=== PATIENT | male | born 1950 | race Caucasian/White ===

== ENCOUNTER 2017-05-27 09:56 | Emergency (ER) | END 2017-05-27 18:27 | disposition home or self-care (01) ==

== ENCOUNTER 2018-08-27 12:29 | Inpatient (IN) | payer MEDICARE, OTHER ==
[~2018-08-27] VITALS: Ht 182.9 cm; Wt 77.0 kg
[~2018-08-27 12:29] MED LIST: HYDR-3980 PO; ONDA4TAB14 PO
[2018-08-27 12:35] VITALS: Ht 182.9 cm; Wt 77.0 kg
--- NOTE | 2018-08-27 14:37 | ERD ---
ER Documentation Chief Complaint Chief Complaint BILATERAL FLANK PAIN & AP WITH DYSURIA X 4 DAYS HPI This is a 68-year-old man with a history of nephrolithiasis status post surgical removal presenting with 3 days constant periumbilical pain and nausea. He denies flank pain or hematuria, no fevers or chills, no chest pain or shortness of breath. Patient has a long history of Crohn's disease and multiple laparotomies and right hemicolectomy. Patient denies blood per rectum or melena. ROS All systems reviewed and are negative except as per history of present illness. Medications Home Meds Reported Medications Cholecalciferol (Vitamin D3) 5,000 Unit Tablet, 5000 UNIT PO DAILY, TAB 08/27/18 Alprazolam* (Xanax*) 2 Mg Tablet, 2 MG PO Q12H PRN for ANXIETY, TAB 08/27/18 Donepezil* (Aricept*) 10 Mg Tablet, 10 MG PO DAILY, TAB 08/27/18 Discontinued Scripts Ondansetron (Ondansetron Odt) 4 Mg Tab.rapdis, 4 MG PO Q6H PRN for NAUSEA AND/OR VOMITING, #10 TAB Prov:HELENA MARQUEZ MD 05/27/17 Hydrocodone/Acetaminophen ([place] 10-325 Tablet) 1 Each Tablet, 1 TAB PO Q6H PRN for PAIN, #7 TAB Prov:HELENA MARQUEZ MD 05/27/17 Allergies Allergies: Coded Allergies: No Known Allergies (Verified Allergy, Mild, 08/27/18) PMhx/Soc chronic obstructive pulmonary disease, cholelithiasis, nephrolithiasis, depression, Crohn's disease, hepatitis, pleural effusion, history of mediastinal lymphadenopathy in the past. Status post hemicolectomy multiple laparotomies. Patient was admitted in 2016 with chest pain had a stress test done which did not show any significant reversible ischemia History of Surgery: Yes (intestinal x7, bilateral kidney stones ablation ) Anesthesia Reaction: No Hx Neurological Disorder: No Hx Respiratory Disorders: No Hx Cardiac Disorders: No Hx Psychiatric Problems: No Hx Miscellaneous Medical Probl: Yes (crohn's dx, kidney stones) Hx Alcohol Use: No Hx Substance Use: No Hx Tobacco Use: Yes FmHx Family History: No diabetes Physical Exam Vitals Vital Signs Date Temp Pulse Resp B/P (MAP) Pulse Ox O2 O2 Flow FiO2 Time Delivery Rate 08/27/18 98.0 59 18 131/62 96 Room Air 14:55 (85) 08/27/18 97.5 94 16 133/63 94 12:35 (86) Physical Exam GENERAL: Well-developed, well-nourished, well-hydrated, moderate discomfort, afebrile HEENT: Moist mucous membranes, pink conjunctiva, no cervical spine tenderness or step-off deformities, no goiter, no jaundice or icterus, extraocular movements intact without pain. No submandibular induration, and no pharyngeal erythema NEURO: Alert and oriented 3, cranial nerves II through XII intact bilaterally, pupils equal round reactive to light, no focal deficits or facial asymmetry, sensation intact distally Strength 5/5 in upper and lower extremities bilaterally CARDIAC: Regular rate and rhythm, no murmurs rubs or gallops LUNGS: Clear bilaterally no wheezing crackles or stridor ABDOMEN: Tenderness over the umbilicus, no rigidity or rebound SKIN: Warm and dry to touch, no abrasions, contusions, or hematomas, no lacerations, no ecchymosis, no target lesions, and without ulcers EXTREMITIES: No clubbing cyanosis or edema, calves are bilaterally symmetrical, no Homans sign, no popliteal cord sign. Distal pulses equal and bilateral PSYCH: Normal affect without agitation or irritability Result Diagram: 08/27/18 1456 08/27/18 1456 Results 24 hrs Laboratory Tests Test 08/27/18 14:56 White Blood Count 7.6 10^3/ul Red Blood Count 4.60 10^6/ul Hemoglobin 13.0 g/dl Hematocrit 42.2 % Mean Corpuscular Volume 91.7 fl Mean Corpuscular Hemoglobin 28.3 pg Mean Corpuscular Hemoglobin Concent 30.8 g/dl Red Cell Distribution Width 16.1 % Platelet Count 197 10^3/UL Mean Platelet Volume 12.1 fl Immature Granulocytes % 0.100 % Neutrophils % 72.1 % Lymphocytes % 15.0 % Monocytes % 9.9 % Eosinophils % 2.4 % Basophils % 0.5 % Nucleated Red Blood Cells % 0.0 /100WBC Immature Granulocytes # 0.010 10^3/ul Neutrophils # 5.5 10^3/ul Lymphocytes # 1.1 10^3/ul Monocytes # 0.8 10^3/ul Eosinophils # 0.2 10^3/ul Basophils # 0.0 10^3/ul Nucleated Red Blood Cells # 0.0 10^3/ul Urine Color KAILEE Urine Clarity CLOUDY Urine pH 5.0 Urine Specific [place] 1.020 Urine Ketones NEGATIVE mg/dL Urine Nitrite NEGATIVE mg/dL Urine Bilirubin NEGATIVE mg/dL Urine Urobilinogen 2+ mg/dL Urine Leukocyte Esterase NEGATIVE Meme/ul Urine Microscopic RBC 11 /HPF Urine Microscopic WBC 3 /HPF Urine Mucus FEW /HPF Urine Hemoglobin NEGATIVE mg/dL Urine Glucose NEGATIVE mg/dL Urine Total Protein NEGATIVE mg/dl Sodium Level 141 mmol/L Potassium Level 5.2 mmol/L Chloride Level 106 mmol/L Carbon Dioxide Level 27 mmol/L Anion Gap 8 Blood Urea Nitrogen 23 mg/dl Creatinine 1.31 mg/dl Est Glomerular Filtrat Rate mL/min 54 mL/min Glucose Level 127 mg/dl Calcium Level 9.5 mg/dl Total Bilirubin 0.5 mg/dl Direct Bilirubin 0.00 mg/dl Indirect Bilirubin 0.5 mg/dl Aspartate Amino Transf (AST/SGOT) 30 IU/L Alanine Aminotransferase (ALT/SGPT) 16 IU/L Alkaline Phosphatase 66 IU/L Total Protein 7.7 g/dl Albumin 4.3 g/dl Globulin 3.40 g/dl Albumin/Globulin Ratio 1.26 Lipase 100 U/L Current Medications Medications Dose Sig/Steffany Start Time Status Last (Trade) Ordered Route PRN Stop Time Admin Dose Reason Admin Sodium 1,000 ml @ Q1H STAT 08/27/18 DC 08/27/18 Chloride 1,000 mls/hr IV 14:44 15:01 08/27/18 15:43 Ondansetron 4 mg ONCE STAT 08/27/18 DC 08/27/18 HCl (Zofran IV 14:44 15:01 Inj) 08/27/18 14:45 Ketorolac 15 mg ONCE STAT 08/27/18 DC 08/27/18 Tromethamine IV 14:44 15:01 (Toradol) 08/27/18 14:45 Oxycodone/ 1 tab ONCE ONCE 08/27/18 DC 08/27/18 Acetaminophen PO 15:00 15:01 (Percocet 08/27/18 15:01 (5/ 325)) Procedures/MDM IV line was established patient was placed on monitoring tech rhythm strip revealed a sinus rhythm at about 60 bpm with upright P and T waves. Patient was afebrile I administered 1 L normal saline IV, Toradol 15 mg IV, Zofran 4 mg IV, Percocet [address] scan of the abdomen pelvis was performed revealing complete small bowel obstruction and mild bilateral nonobstructing nephrolithiasis, cholelithiasis, please refer to radiologist dictation for full report I ordered Zosyn 3.375 g IV and NG tube placement to intermittent suctioning. I spoke to surgeon lead front desk agent Dr. Bailey regarding the patient's presentation, symptomatology, CT scan findings, he agreed to consult the patient. CBC was unremarkable, electrolytes revealed mild hyperkalemia 5.2 and dehydration with a BUN/creatinine of 23/1.3, liver function tests were unremarkable, coagulation profile has been ordered results are pending I will follow-up, urine analysis was equivocal. Patient will be admitted to [facility] for continued medical management, antibiotic, surgical consultation Departure Diagnosis: Primary Impression: Abdominal pain Abdominal location: periumbilical Qualified Codes: R10.33 - Periumbilical pain Additional Impressions: Small bowel obstruction Acute dehydration Condition: SHERIF Ralph MD Aug 27, 2018 14:37
[2018-08-27] MEDS ORDERED: ONDANSETRON 4 MG INJ IV STA (14:44)
[2018-08-27] MEDS ORDERED: SOD CHLORIDE 0.9% 1,000 ML IV STA (14:44)
[2018-08-27] MEDS ORDERED: KETOROLAC 15 MG INJ IV STA (14:44)
[2018-08-27] MEDS ORDERED: OXYCODONE/ACETAMINOPHEN (5/325) TAB PO ONE (15:00)
[2018-08-27] MEDS ORDERED: ALPR2TAB PO (15:07)
[2018-08-27] MEDS ORDERED: DONE10TA7 PO (15:07)
[2018-08-27] MEDS ORDERED: CHOL500010 PO (15:08)
[2018-08-27] MEDS ORDERED: PIPER-TAZO 3.375 GM IV (PMX) 100 ML IVPB ONE (17:00)
[2018-08-27] MEDS ORDERED: ONDANSETRON 4 MG INJ IV PRN (18:30)
[2018-08-27] MEDS: SOD CHLORIDE 0.9% 1,000 ML IV SCH (18:48)
[2018-08-27] MEDS: HYDROmorphONE 1 MG/ML SYG IV PRN ×2 (18:57→22:04)
[2018-08-27 19:01] VITALS: BP 124/60; PULSE 54; RESP 16
[2018-08-27 20:00] VITALS: BP 122/65; PULSE 58; RESP 18
[2018-08-27] MEDS: FAMOTIDINE 20 MG INJ IV SCH (21:33)
[2018-08-27] MEDS: PIPER-TAZO 3.375 GM IV (PMX) 100 ML IVPB SCH (22:05)
[2018-08-28 02:00] VITALS: BP 124/65; PULSE 58; RESP 19
[2018-08-28] MEDS: HYDROmorphONE 1 MG/ML SYG IV PRN ×6 (02:51→22:29)
[2018-08-28] MEDS: SOD CHLORIDE 0.9% 1,000 ML IV SCH ×3 (05:54→18:51)
[2018-08-28] MEDS: PIPER-TAZO 3.375 GM IV (PMX) 100 ML IVPB SCH ×3 (05:54→21:23)
[2018-08-28 07:29] VITALS: BP 105/55; PULSE 51; RESP 18
[2018-08-28] MEDS: FAMOTIDINE 20 MG INJ IV SCH ×2 (09:05→21:23)
--- NOTE | 2018-08-28 11:26 | CONS ---
Assessment/Plan Assessment/Plan Problems: (1) Crohn disease Status: Chronic Qualifiers: Qualified Codes: K50.818 - Crohn's disease of both small and large intestine with other complication (2) Acute dehydration Status: Acute (3) Abdominal pain Status: Acute Qualifiers: Qualified Codes: R10.33 - Periumbilical pain (4) Small bowel obstruction Status: Acute (5) Constipation Status: Acute Assessment/Plan (Daily) Small bowel obstruction the patient with Crohn's disease. Continue NG tube, n.p.o., hydration. Will follow Consultation Date/Type/Reason Admit Date/Time Aug 27, 2018 at 17:12 Date of Consultation: Aug 28, 2018 Type of Consult Surgical Reason for Consultation Small bowel obstruction in a patient with long-standing Crohn's disease. Date/Time of Note DATE: 08/28/18 TIME: 11:21 Hx of Present Illness 68-year-old male with long-standing history of the Crohn's disease presented to emergency room with a 2 days of history of nausea vomiting constipation and obstipation. Patient has been diagnosed with Crohn's disease since age 15 when his appendix had been removed. Instead he had 5 different abdominal operation with resection of the small and large bowel. The last procedure was performed 7 years ago. Since then this is the first episode of small bowel obstruction. Constitutional: no complaints, improved Eyes: no complaints ENT: no complaints Respiratory: no complaints Cardiovascular: no complaints Gastrointestinal: no complaints, constipation, nausea, vomiting Genitourinary: no complaints Musculoskeletal: no complaints Skin: no complaints Neurologic: no complaints Endocrine: no complaints Lymphatic: no complaints Psychological: no complaints, nl mood/affect Immunologic: no complaints Past Medical History Medical History: other (Crohn's disease) Home Meds Reported Medications Cholecalciferol (Vitamin D3) 5,000 Unit Tablet, 5000 UNIT PO DAILY, TAB 08/27/18 Alprazolam* (Xanax*) 2 Mg Tablet, 2 MG PO Q12H PRN for ANXIETY, TAB 08/27/18 Donepezil* (Aricept*) 10 Mg Tablet, 10 MG PO DAILY, TAB 08/27/18 Discontinued Scripts Ondansetron (Ondansetron Odt) 4 Mg Tab.rapdis, 4 MG PO Q6H PRN for NAUSEA AND/OR VOMITING, #10 TAB Prov:HELENA MARQUEZ MD 05/27/17 Hydrocodone/Acetaminophen ([place] 10-325 Tablet) 1 Each Tablet, 1 TAB PO Q6H PRN for PAIN, #7 TAB Prov:HELENA MARQUEZ MD 05/27/17 Medications Current Medications Ondansetron HCl (Zofran Inj) 4 mg Q4H PRN IV NAUSEA AND/OR VOMITING; Start 08/27/18 at 18:30 Hydromorphone HCl (Dilaudid) 1 mg Q3H PRN IV SEVERE PAIN LEVEL 7-10 Last administered on 08/28/18at 07:34; Admin Dose 1 MG; Start 08/27/18 at 18:30 Famotidine (Pepcid Iv) 20 mg BID IV Last administered on 08/28/18at 09:05; Admin Dose 20 MG; Start 08/27/18 at 21:00 Sodium Chloride 1,000 ml @ 90 mls/hr Q11H7M IV Last administered on 08/28/18at 05:54; Admin Dose 90 MLS/HR; Start 08/27/18 at 18:30 Piperacillin Sod/ Tazobactam Sod 100 ml @ 200 mls/hr Q8 IVPB Last administered on 08/28/18at 05:54; Admin Dose 200 MLS/HR; Start 08/27/18 at 22:00 Allergies: Coded Allergies: No Known Allergies (Verified Allergy, Mild, 08/27/18) Past Surgical History Past Surgical Hx: appendectomy, bowel resection Family History Significant Family History: no pertinent family hx Social History Smoking Status: Current some day smoker Exam/Review of Systems Exam Vitals Vital Signs Date Temp Pulse Resp B/P (MAP) Pulse Ox O2 O2 Flow FiO2 Time Delivery Rate 08/28/18 98.3 51 18 105/55 94 Room Air 07:29 (72) Intake and Output 08/27/18 08/27/18 08/28/18 1515:00 23:00 07:00 IntakeIntake Total 200 ml 1100 ml BalanceBalance 200 ml 1100 ml Constitutional: alert, oriented, well developed Psych: no complaints, nl mood/affect Head: normocephalic, atraumatic Eyes: nl conjunctiva, EOMI, nl lids, nl sclera, PERRL ENMT: nl external ears & nose, nl lips & teeth, nl nasal mucosa & septum Neck: supple, non-tender Respiratory: clear to auscultation, normal air movement Cardiovascular: regular rate and rhythm, nl pulses Gastrointestinal: soft, nl liver, spleen, non-tender, other (Mildly distended.) Musculoskeletal: nl extremities to inspection, nl gait and stance Extremities: normal pulses Neurological: FACE PAINTER II-XII intact, nl mental status, nl speech, nl strength Skin: nl turgor; No rash or lesions Lymph: nl lymph nodes Results Result Diagram: 08/28/18 0603 08/28/18 0603 Results 24hrs Laboratory Tests Test 08/27/18 14:56 08/28/18 06:03 White Blood Count 7.6 4.7 #L Red Blood Count 4.60 L 3.68 L Hemoglobin 13.0 L 10.3 #L Hematocrit 42.2 34.1 L Mean Corpuscular Volume 91.7 92.7 Mean Corpuscular Hemoglobin 28.3 L 28.0 L Mean Corpuscular Hemoglobin Concent 30.8 L 30.2 L Red Cell Distribution Width 16.1 #H 16.2 H Platelet Count 197 143 # Mean Platelet Volume 12.1 H 11.6 H Immature Granulocytes % 0.100 0.400 Neutrophils % 72.1 59.5 Lymphocytes % 15.0 25.8 Monocytes % 9.9 9.2 Eosinophils % 2.4 4.5 Basophils % 0.5 0.6 Nucleated Red Blood Cells % 0.0 0.0 Immature Granulocytes # 0.010 0.020 Neutrophils # 5.5 2.8 Lymphocytes # 1.1 1.2 Monocytes # 0.8 0.4 Eosinophils # 0.2 0.2 Basophils # 0.0 0.0 Nucleated Red Blood Cells # 0.0 0.0 Prothrombin Time 12.3 13.7 Prothrombin Time Ratio 1.0 1.1 INR International Normalized Ratio 0.90 1.04 Activated Partial Thromboplast Time 29.3 Urine Color KAILEE Urine Clarity CLOUDY A Urine pH 5.0 Urine Specific [place] 1.020 Urine Ketones NEGATIVE Urine Nitrite NEGATIVE Urine Bilirubin NEGATIVE Urine Urobilinogen 2+ H Urine Leukocyte Esterase NEGATIVE Urine Microscopic RBC 11 H Urine Microscopic WBC 3 Urine Mucus FEW A Urine Hemoglobin NEGATIVE Urine Glucose NEGATIVE Urine Total Protein NEGATIVE Sodium Level 141 142 Potassium Level 5.2 H 4.4 Chloride Level 106 111 H Carbon Dioxide Level 27 26 Anion Gap 8 5 Blood Urea Nitrogen 23 H 20 Creatinine 1.31 H 1.31 H Est Glomerular Filtrat Rate mL/min 54 L 54 L Glucose Level 127 89 Calcium Level 9.5 8.3 L Total Bilirubin 0.5 0.5 Direct Bilirubin 0.00 0.00 Indirect Bilirubin 0.5 0.5 Aspartate Amino Transf (AST/SGOT) 30 14 #L Alanine Aminotransferase (ALT/SGPT) 16 19 Alkaline Phosphatase 66 50 Total Protein 7.7 5.8 #L Albumin 4.3 2.9 #L Globulin 3.40 H 2.90 Albumin/Globulin Ratio 1.26 1.00 Lipase 100 Lactic Acid Level 0.5 Phosphorus Level 3.4 Magnesium Level 1.7 Thyroid Stimulating Hormone (TSH) 1.260 Medications Medication Current Medications Ondansetron HCl (Zofran Inj) 4 mg Q4H PRN IV NAUSEA AND/OR VOMITING; Start 08/27/18 at 18:30 Hydromorphone HCl (Dilaudid) 1 mg Q3H PRN IV SEVERE PAIN LEVEL 7-10 Last administered on 08/28/18at 07:34; Admin Dose 1 MG; Start 08/27/18 at 18:30 Famotidine (Pepcid Iv) 20 mg BID IV Last administered on 08/28/18at 09:05; Admin Dose 20 MG; Start 08/27/18 at 21:00 Sodium Chloride 1,000 ml @ 90 mls/hr Q11H7M IV Last administered on 08/28/18at 05:54; Admin Dose 90 MLS/HR; Start 08/27/18 at 18:30 Piperacillin Sod/ Tazobactam Sod 100 ml @ 200 mls/hr Q8 IVPB Last administered on 08/28/18at 05:54; Admin Dose 200 MLS/HR; Start 08/27/18 at 22:00 RAMONE ARIAS MD Aug 28, 2018 11:26
[2018-08-28 14:40] VITALS: BP 147/62; PULSE 52; RESP 18
[2018-08-28] MEDS ORDERED: LORAZEPAM 2 MG INJ IV PRN (15:00)
[2018-08-28 20:14] VITALS: BP 155/74; PULSE 49; RESP 17
--- NOTE | 2018-08-28 21:23 | CONS ---
DATE OF ADMISSION: 08/27/2018 DATE OF CONSULTATION: HISTORY OF PRESENT ILLNESS: A 68-year-old male with a longstanding history of Crohn's disease who co mes to the ER complaining of nausea and vomiting and constipation after eating broccoli. The patient was diagnosed to have Crohn's disease many, many years ago and had the right colon removed. He had a full surgery on his abdomen for Crohn's related surgery. No GI bleeding, no diarrhea, no chest zeeshan n, no shortness of breath, no abdominal pain. The patient has been passing gas. Now, no more nausea and vomiting. No fever, no chills, no weight loss. PAST MEDICAL HISTORY: Crohn's disease. MEDICATIONS: Home medications are reviewed. He was on Aricept, Xanax, hydrocodone. PAST SURGICAL HISTORY: Appendicectomy and bowel resection. FAMILY HISTORY: Nothing significant. SOCIAL HISTORY: Smoking. Occasional smoker. PHYSICAL EXAMINATION: GENERAL: Alert, awake. VITAL SIGNS: Stable. ABDOMEN: Benign. Multiple surgical scars seen. It is nondistended. It is scaphoid. Bowel sounds heard. LUNGS: Clear. EXTREMITIES: No edema. CENTRAL NERVOUS SYSTEM: Grossly within normal limits. LABORATORY DATA: His hematocrit, which was 42, dropped down to 34. BNP: His creatinine is 1.31. I NR was within normal limits. DIAGNOSTIC DATA: Reviewed the CAT scan, which showed right hemicolectomy, and there was a small-alisa l obstruction, and the blockage was at the anastomotic site within the right colon and small bowel. IMPRESSION: 1. Small-bowel obstruction. 2. History of Crohn's disease. 3. History of multiple surgeries related to Crohn's disease. 4. Mild anemia. PLAN: Plan at this point is to get a small bowel follow through. If normal, then we will remove the NG tube, start on a liquid diet and advance it. The patient wants to go home and may sign out also. Dictated By: DC MEDINA/BRENNA Conf#: [id number] DID#: [id number] CC: SCOTT ALCALA MD;*EndCC*
--- NOTE | 2018-08-28 21:47 | HP ---
DATE OF ADMISSION: 08/27/2018 REASON FOR ADMISSION: Abdominal pain, small-bowel obstruction. HISTORY OF PRESENT ILLNESS: The patient is a 68-year-old male, very well known to me with a history of Crohn's disease, coronary artery disease, nephrolithiasis, chronic pain, nicotine depend ency, history of hepatitis C, COPD, history of staghorn calculi status post left Ghotra to nephrostoli thotomy in February 2015 with history of UTIs in the past. The patient states that he thinks he pass ed a couple of stones in his urine, but then after eating broccoli he started to experience abdominal pain, and the pain was constant. Ultimately, in the ER patient underwent various diagnostic tests, including a CT scan of the abdomen and pelvis which showed small-bowel obstruction with a transition point at the ileocolic anastomosis. There is mild mesenteric edema between the dilated loops of the small bowel in the right lower quadrant, prior partial right hemicolectomy, nonobstructive bilateral nephrolithiasis, cholelithiasis, bibasilar atelectasis, and small left pleural effusion. In the ER, patient had an NG tube placed to suction. IV fluid hydration was given and pain control. Urinalysis was negative for evidence of UTI. Ultimately, the patient was admitted to the [facility] and surgical consultation with Dr. Moo Etienne was made. The patient now upon evaluation is feeli ng much better, currently denies any pain. Requesting the NG tube to be removed and there is not muc h output noted. He denies any chest pain or shortness of breath. Denied any fever or chills. Denie s weakness or numbness. The patient is admitted for further care. PAST MEDICAL HISTORY: Includes COPD, cholelithiasis, nephrolithiasis, depression, Crohn's disease, h epatitis C, pleural effusion, history of ____ lymphadenopathy. ALLERGIES: NO KNOWN DRUG ALLERGIES. SURGICAL HISTORY: Includes ____ surgical resection of small bowel in the past, also large bowel 10 y ears ago. FAMILY HISTORY: Mother at age 90 from old age. Father from [place]. She has 1 brother who d from cancer. SOCIAL HISTORY: The patient is a heavy smoker. He smokes a pack a day. Alcohol, IV drug abuse: No ne. REVIEW OF SYSTEMS: Per HPI. CURRENT MEDICATIONS AT HOME: Include: 1. Aricept 10 mg daily. 2. Alprazolam 2 mg q.12 p.r.n. 3. Vitamin D3 at 5000 international units daily. PHYSICAL EXAMINATION: VITAL SIGNS: Temperature 98.3, pulse 52, respirations 18, blood pressure 147/62, saturation 98% on r oom air. GENERAL: The patient is in no acute distress. HEENT: Normocephalic, atraumatic. Pale. Dry mucous membranes. CARDIOVASCULAR: S1, S2, regular rate. LUNGS: Clear. ABDOMEN: Now soft, nontender. EXTREMITIES: No clubbing, cyanosis, or edema. He is definitely doing better. LABORATORY DATA: White count is 4.7, hemoglobin 10.8, hematocrit 24, platelets 142, neutrophils 60%, lymphocytes 26%. Chemistry: Sodium 142, potassium 4.2, chloride 111, bicarbonate 26, BUN is 20, cr eatinine 1.31, and glucose of 89. Lactic acid 0.5, AST is 14, ALT 19, alkaline phosphatase 50, album in 2.9, and TSH is 1.26. Urinalysis showed +2 urobili. INR is 1.04. Urine culture shows mixed gram -positive organisms, less than 10 to the 4th. MEDICATIONS: 1. Zosyn 3.375 grams IV q.8. 2. Pepcid 20 mg IV b.i.d. 3. Zofran p.r.n. 4. Dilaudid p.r.n. 5. Normal saline at 90 mL an hour. ASSESSMENT AND PLAN: This is a 68-year-old male with a history of chronic obstructive pulm onary disease, Crohn's disease, anemia, nephrolithiasis who presented with abdominal pain, was found to have small-bowel obstruction. 1. Small-bowel obstruction. Continue supportive care with nasogastric tube to suction, pain control and intravenous fluid hydration. If the patient is doing better, we will obtain a kidney, ureter, b ladder x-ray. If there is no significant abnormality, may consider removing the tube and starting a clear liquid diet. Clinically, the patient is doing better. I appreciate surgical input and recomme ndation. I also requested gastrointestinal consultation, as patient has history of Crohn's disease. 2. History of Crohn's disease. Further recommendation by Dr. Rocha. The patient may benefit from mesalamine and may need another colonoscopy. 3. The patient will be placed on deep vein thrombosis prophylaxis and gastrointestinal prophylaxis. 4. Anxiety disorder. Ativan IV as needed to be given for anxiety. 5. Pepcid for gastrointestinal prophylaxis intravenously. 6. Disposition soon once nasogastric tube is out and tolerating diet. 7. Anemia. The patient with history of iron deficiency anemia and mild B12 deficiency on labs in . We will repeat those labs. 8. We will follow patient closely. Dictated By: SCOTT HERRERA/BRENNA Conf#: [id number] DID#: [id number]
[2018-08-28 23:04] VITALS: BP 145/68; PULSE 55; RESP 18
[2018-08-29 02:23] VITALS: BP 152/68; PULSE 51; RESP 18
[2018-08-29] MEDS ORDERED: ALPRAZOLAM 0.5 MG TAB PO PRN (04:00)
[2018-08-29] MEDS: PIPER-TAZO 3.375 GM IV (PMX) 100 ML IVPB SCH (06:01)
[2018-08-29 07:49] VITALS: BP 124/62; PULSE 48; RESP 18
--- NOTE | 2018-08-29 08:00 | CONS ---
Assessment/Plan Assessment/Plan Hospital Course (Demo Recall) 68 yo male with h/o Crohn's disease presents with N/V and constipation 1. Small-bowel obstruction. -resolved 2. History of Crohn's disease. -no signs of flare up 3. History of multiple surgeries related to Crohn's disease. 4. Mild anemia. -Low iron and sat IMPRESSION: 1. Malpositioned nasogastric tube ending in distal esophagus. Recommend further advancement by at least 14 cm and repeat radiographic imaging. 2. Moderate amount of retained stool in the colonic loops. 3. Bilateral renal calculi, left larger than right. 4. Small left pleural effusion. PLAN: Amitiza 24 mcg bid PO Clear liquid diet, advance as tolerated. Pt advised if he feels nauseous to stop diet. Pt advised to follow up with Dr. Rocha as outpatient to manage Crohn's Ferritin, B12, folate and FOB Pt may need to be started on Iron Pt examined and plan of care discussed with Dr. Rocha Consultation Date/Type/Reason Admit Date/Time Aug 27, 2018 at 17:12 Initial Consult Date 08/28/18 Date/Time of Note DATE: 08/29/18 TIME: 07:43 24 HR Interval Summary Free Text/Dictation Pt had bm post tap water enema. XR abd shows no obstruction, contrast was not used. Denies N/V, abd pain. Pt states he is passing gas. Normal bowel sounds. On palpitation of abd, RLQ pain which pt states has been there for last 40 years due to Crohn's disease. Exam/Review of Systems Exam Vitals Vital Signs Date Temp Pulse Resp B/P (MAP) Pulse Ox O2 O2 Flow FiO2 Time Delivery Rate 08/29/18 97.8 51 18 152/68 94 02:23 (96) 08/28/18 Room Air 14:40 Intake and Output 08/28/18 08/28/18 08/29/18 1515:00 23:00 07:00 IntakeIntake Total 1380 ml 1060 ml OutputOutput Total 1150 ml 450 ml 1000 ml BalanceBalance -1150 ml 930 ml 60 ml Constitutional: alert, oriented, well developed Psych: no complaints Head: normocephalic Eyes: nl sclera, PERRL ENMT: nl lips & teeth Respiratory: clear to auscultation Cardiovascular: regular rate and rhythm Gastrointestinal: soft, bowel sounds, other (PTP in RLQ) Musculoskeletal: nl extremities to inspection Extremities: normal pulses Neurological: nl mental status, nl speech Results Result Diagram: 08/29/1852608/29/18 0527 Results 24hrs Laboratory Tests Test 08/29/18 05:27 White Blood Count 3.7 #L Red Blood Count 3.75 L Hemoglobin 10.6 L Hematocrit 34.3 L Mean Corpuscular Volume 91.5 Mean Corpuscular Hemoglobin 28.3 L Mean Corpuscular Hemoglobin Concent 30.9 L Red Cell Distribution Width 15.9 H Platelet Count 151 Mean Platelet Volume 12.1 H Immature Granulocytes % 0.300 Neutrophils % 58.9 Lymphocytes % 26.9 Monocytes % 8.2 Eosinophils % 4.6 Basophils % 1.1 Nucleated Red Blood Cells % 0.0 Immature Granulocytes # 0.010 Neutrophils # 2.2 Lymphocytes # 1.0 Monocytes # 0.3 Eosinophils # 0.2 Basophils # 0.0 Nucleated Red Blood Cells # 0.0 Absolute Reticulocyte Count 0.039 Percent Reticulocyte Count 1.0 Sodium Level 141 Potassium Level 4.0 Chloride Level 106 Carbon Dioxide Level 28 Anion Gap 7 Blood Urea Nitrogen 15 Creatinine 1.43 H Est Glomerular Filtrat Rate mL/min 49 L Glucose Level 72 Calcium Level 8.5 Phosphorus Level 3.1 Magnesium Level 1.6 L Iron Level 30 L Total Iron Binding Capacity 242 Percent Iron Saturation 12 L Vitamin B12 Level 271 Medications Medication Current Medications Ondansetron HCl (Zofran Inj) 4 mg Q4H PRN IV NAUSEA AND/OR VOMITING; Start 08/27/18 at 18:30 Hydromorphone HCl (Dilaudid) 1 mg Q3H PRN IV SEVERE PAIN LEVEL 7-10 Last administered on 08/28/18at 22:29; Admin Dose 1 MG; Start 08/27/18 at 18:30 Famotidine (Pepcid Iv) 20 mg BID IV Last administered on 08/28/18at 21:23; Admin Dose 20 MG; Start 08/27/18 at 21:00 Sodium Chloride 1,000 ml @ 90 mls/hr Q11H7M IV Last administered on 08/28/18at 18:51; Admin Dose 90 MLS/HR; Start 08/27/18 at 18:30 Piperacillin Sod/ Tazobactam Sod 100 ml @ 200 mls/hr Q8 IVPB Last administered on 08/29/18at 06:01; Admin Dose 200 MLS/HR; Start 08/27/18 at 22:00 Alprazolam (Xanax) 2 mg Q6H PRN PO ANXIETY Last administered on 08/29/18at 04:24; Admin Dose 2 MG; Start 08/29/18 at 04:00 MARILY BARON Aug 29, 2018 07:53
[2018-08-29] MEDS ORDERED: LUBIPROSTONE 24 MCG CAP PO SCH (09:00)
--- NOTE | 2018-08-30 11:22 | DS ---
DATE OF ADMISSION: 08/27/2018 DATE OF DISCHARGE: 08/29/2018 DISCHARGE DISPOSITION: The patient left AMA on 08/29/2018. REASON FOR ADMISSION: Small-bowel obstruction, abdominal pain. HOSPITAL COURSE: The patient is a 68-year-old male with history of Crohn disease, coronary artery disease, nephrolithiasis, chronic pain syndrome, nicotine dependence, history of hepatitis C with nondetected viral load, COPD, stomach calculi in the past, status post nephrolithotomy in [facility] er 2014 with history of post-procedure recurrent UTIs. The patient now presents to the Emergency Dep artment with continuing acute abdominal pain. In the ER, patient was evaluated extensively and under went a CT scan, which showed small bowel obstruction with a transition point at the ileocolic anastom osis. There was mild mesenteric edema within the dilated loops of the small bowel in the right lower quadrant. Ultimately, the surgeon was consulted and I also asked Dr. Rocha, the GI specialist, to be consulted. The patient had an NG tube to suction. He was started on IV Zosyn. Not much output c katrina from the NG tube and patient's abdominal pain improved. A KUB was performed, which showed mild p ositioning NG tube in the distal esophagus, recommend further advancement by at least 14 cm and repea t radiographic imaging. Also, moderate amount of retained stool in the colonic loops, bilateral kinga l calculi, left greater than right, small left pleural effusion. Dictated By: SCOTT HERRERA/BRENNA Conf#: [id number] DID#: [id number]
== END 2018-08-29 10:15 | disposition left against medical advice (07) | DRG 386 ==
LOC: E/R 12:29 → 2NE 17:12
PROVIDERS: ADMIT Internal Medicine; ATTEND Internal Medicine
DX: K50.812 Crohn's disease of both small and large intestine with intestinal obstruction (principal); J90 Pleural effusion, not elsewhere classified; J44.9 Chronic obstructive pulmonary disease, unspecified; Z90.49 Acquired absence of other specified parts of digestive tract; E86.0 Dehydration; D64.9 Anemia, unspecified; I25.10 Atherosclerotic heart disease of native coronary artery without angina pectoris; F17.200 Nicotine dependence, unspecified, uncomplicated; F41.9 Anxiety disorder, unspecified
CPT/HCPCS: 36415; 74018; 74176; 80048; 80053; 81001; 82607; 82728; 82746; 83540; 83605; 83690; 83735; 84100; 84443; 85025; 85045; 85610; 85730; 87086; 96374; 96375; J1170; J1885; J2060; J2405; J2543; J7030